=== PATIENT | male | born 1945 | race Caucasian/White ===

== ENCOUNTER 2018-08-31 12:01 | Day surgery (SDC) | payer OTHER ==
[~2018-08-31] VITALS: Ht 180.3 cm; Wt 81.7 kg
[~2018-08-31 12:01] MED LIST: ACET325 PO; Adult Low Dose81 MG PO; Ceftriaxone2 G1 IV; FISH OIL-OMEGA1 EACH PO; OXYACE5T PO; OXYC10ER PO; PARO30 PO; TRAM50 PO
--- NOTE | 2018-08-31 14:52 | NUR ---
08/31/18 1452 Ivanna Joseph PT INTO RECLINER WITH AT BEDSIDE. VSS AND PT DENIES PAIN AND NAUSEA. PT TOLERATING PO INTAKE WELL.
== END 2018-08-31 15:18 | disposition home or self-care (01) ==
LOC: ORSCSDS 12:01
PROVIDERS: Ophthalmology
PROC: 0HB1XZX Excision of Face Skin, External Approach, Diagnostic (ICD-10-PCS; principal; 2018-08-31 13:45)
DX: D04.112 Carcinoma in situ of skin of right lower eyelid, including canthus (principal); Z85.858 Personal history of malignant neoplasm of other endocrine glands; I25.2 Old myocardial infarction; Z79.82 Long term (current) use of aspirin
CPT/HCPCS: 88305; J2250; J7120

== ENCOUNTER → 2022-01-14 | Outpatient (CLI) | payer OTHER | END | disposition home or self-care (01) | LOC: LAB SHORT 08:16 | DX: L02.91 Cutaneous abscess, unspecified (principal) | CPT/HCPCS: 87070; 87075; 87205 ==

== ENCOUNTER → 2022-02-06 | Outpatient (CLI) | payer OTHER | LOC: LAB SHORT 14:02 → PLD 14:02 | DX: D48.5 Neoplasm of uncertain behavior of skin (principal) | CPT/HCPCS: 88341; 88342 ==

== ENCOUNTER → 2022-04-08 | Outpatient (CLI) | payer OTHER | END | disposition home or self-care (01) | LOC: LAB 14:15 → LAB SHORT 14:15 | DX: S01.402A Unspecified open wound of left cheek and temporomandibular area, initial encounter (principal); C44.42 Squamous cell carcinoma of skin of scalp and neck; C44.629 Squamous cell carcinoma of skin of left upper limb, including shoulder; C44.529 Squamous cell carcinoma of skin of other part of trunk; D04.39 Carcinoma in situ of skin of other parts of face; D04.4 Carcinoma in situ of skin of scalp and neck; L57.8 Other skin changes due to chronic exposure to nonionizing radiation; L85.3 Xerosis cutis; L08.9 Local infection of the skin and subcutaneous tissue, unspecified; R52 Pain, unspecified | CPT/HCPCS: 87070; 87077; 87186; 87205 ==

== ENCOUNTER 2022-04-15 12:34 | Day surgery (SDC) | payer OTHER | END 2022-04-15 22:57 | disposition home or self-care (01) | LOC: WOUND 12:34 | DX: C49.0 Malignant neoplasm of connective and soft tissue of head, face and neck (principal); F17.290 Nicotine dependence, other tobacco product, uncomplicated; Z88.1 Allergy status to other antibiotic agents; Z88.0 Allergy status to penicillin; Z88.8 Allergy status to other drugs, medicaments and biological substances | CPT/HCPCS: 99406; A9270; G0463 ==

== ENCOUNTER 2022-04-21 08:12 | Day surgery (SDC) | payer OTHER ==
[2022-04-21] MEDS ORDERED: HYDHCL25 PO (14:12)
== END 2022-04-21 23:52 | disposition home or self-care (01) ==
LOC: WOUND 08:12
DX: C49.0 Malignant neoplasm of connective and soft tissue of head, face and neck (principal); Z72.0 Tobacco use
CPT/HCPCS: A9270; G0463

== ENCOUNTER 2022-04-22 06:40 | Day surgery (SDC) | payer OTHER ==
[~2022-04-22 06:40] MED LIST changes: +HYDHCL25 PO
== END 2022-04-22 23:29 | disposition home or self-care (01) ==
LOC: WOUND
DX: C49.0 Malignant neoplasm of connective and soft tissue of head, face and neck (principal)
CPT/HCPCS: A9270; G0463

== ENCOUNTER 2022-04-24 02:01 | Day surgery (SDC) | payer OTHER | END 2022-04-24 23:10 | disposition home or self-care (01) | LOC: WOUND 02:01 | DX: C49.0 Malignant neoplasm of connective and soft tissue of head, face and neck (principal) | CPT/HCPCS: 99406; A9270; G0463 ==

== ENCOUNTER 2022-04-27 01:16 | Day surgery (SDC) | payer OTHER | END 2022-04-27 23:59 | disposition home or self-care (01) | LOC: WOUND 01:16 | DX: C49.0 Malignant neoplasm of connective and soft tissue of head, face and neck (principal); Z72.0 Tobacco use | CPT/HCPCS: A9270; G0463 ==

== ENCOUNTER 2022-04-29 07:49 | Day surgery (SDC) | payer OTHER | END 2022-04-29 23:37 | disposition home or self-care (01) | LOC: WOUND 07:49 | DX: C49.0 Malignant neoplasm of connective and soft tissue of head, face and neck (principal); Z72.0 Tobacco use | CPT/HCPCS: A9270; G0463 ==

== ENCOUNTER 2022-05-01 00:16 | Day surgery (SDC) | payer OTHER | END 2022-05-01 23:21 | disposition home or self-care (01) | LOC: WOUND 00:16 | DX: C49.0 Malignant neoplasm of connective and soft tissue of head, face and neck (principal); Z72.0 Tobacco use | CPT/HCPCS: A9270; G0463 ==

== ENCOUNTER 2022-05-15 02:20 | Day surgery (SDC) | payer OTHER | END 2022-05-16 00:30 | disposition home or self-care (01) | LOC: WOUND 02:20 | DX: C49.0 Malignant neoplasm of connective and soft tissue of head, face and neck (principal); Z72.0 Tobacco use | CPT/HCPCS: G0463 ==

== ENCOUNTER 2022-05-22 02:13 | Day surgery (SDC) | payer OTHER | END 2022-05-22 23:59 | disposition home or self-care (01) | LOC: WOUND 02:13 | DX: C49.0 Malignant neoplasm of connective and soft tissue of head, face and neck (principal); Z72.0 Tobacco use | CPT/HCPCS: G0463 ==

== ENCOUNTER 2022-05-26 02:11 | Day surgery (SDC) | payer OTHER | END 2022-05-26 22:44 | disposition home or self-care (01) | LOC: WOUND 02:11 | DX: C49.0 Malignant neoplasm of connective and soft tissue of head, face and neck (principal); Z72.0 Tobacco use | CPT/HCPCS: G0463 ==

== ENCOUNTER 2022-05-29 02:36 | Day surgery (SDC) | payer OTHER | END 2022-05-29 23:34 | disposition home or self-care (01) | LOC: WOUND 02:36 | DX: C49.0 Malignant neoplasm of connective and soft tissue of head, face and neck (principal); Z72.0 Tobacco use | CPT/HCPCS: 99406; G0463 ==

== ENCOUNTER 2022-06-02 02:47 | Day surgery (SDC) | payer OTHER | END 2022-06-02 23:08 | disposition home or self-care (01) | LOC: WOUND 02:47 | DX: C49.0 Malignant neoplasm of connective and soft tissue of head, face and neck (principal); Z72.0 Tobacco use | CPT/HCPCS: G0463 ==

== ENCOUNTER 2022-06-05 00:34 | Day surgery (SDC) | payer OTHER | END 2022-06-05 23:25 | disposition home or self-care (01) | LOC: WOUND 00:34 | DX: C49.0 Malignant neoplasm of connective and soft tissue of head, face and neck (principal); Z72.0 Tobacco use | CPT/HCPCS: G0463 ==

== ENCOUNTER 2022-06-09 01:36 | Day surgery (SDC) | payer OTHER | END 2022-06-09 23:14 | disposition home or self-care (01) | LOC: WOUND 01:36 | DX: C49.0 Malignant neoplasm of connective and soft tissue of head, face and neck (principal); Z72.0 Tobacco use | CPT/HCPCS: 99406; G0463 ==

== ENCOUNTER 2022-06-12 00:47 | Day surgery (SDC) | payer OTHER | END 2022-06-12 23:17 | disposition home or self-care (01) | LOC: WOUND 00:47 | DX: C49.0 Malignant neoplasm of connective and soft tissue of head, face and neck (principal); Z72.0 Tobacco use | CPT/HCPCS: G0463 ==

== ENCOUNTER 2022-06-16 02:56 | Day surgery (SDC) | payer OTHER | END 2022-06-16 23:23 | disposition home or self-care (01) | LOC: WOUND 02:56 | DX: C49.0 Malignant neoplasm of connective and soft tissue of head, face and neck (principal); Z72.0 Tobacco use | CPT/HCPCS: G0463 ==

== ENCOUNTER 2022-06-19 01:30 | Day surgery (SDC) | payer OTHER | END 2022-06-19 23:16 | disposition home or self-care (01) | LOC: WOUND 01:30 | DX: C49.0 Malignant neoplasm of connective and soft tissue of head, face and neck (principal); Z72.0 Tobacco use | CPT/HCPCS: G0463 ==

== ENCOUNTER 2022-06-23 03:55 | Day surgery (SDC) | payer OTHER ==
[2022-06-23] MEDS ORDERED: OXYC5 PO (22:20)
[2022-06-23] MEDS ORDERED: Prednisone10 MG PO (22:20)
[2022-06-23] MEDS ORDERED: PAXIL40 M1 PO (22:21)
== END 2022-06-23 23:18 | disposition home or self-care (01) ==
LOC: WOUND 03:55
DX: C49.0 Malignant neoplasm of connective and soft tissue of head, face and neck (principal); Z72.0 Tobacco use
CPT/HCPCS: G0463

== ENCOUNTER 2022-06-26 00:56 | Day surgery (SDC) | payer OTHER ==
[~2022-06-26 00:56] MED LIST changes: +OXYC5 PO; +PAXIL40 M1 PO; +Prednisone10 MG PO
== END 2022-06-26 23:13 | disposition home or self-care (01) ==
LOC: WOUND 00:56
DX: S01.402A Unspecified open wound of left cheek and temporomandibular area, initial encounter (principal); C49.0 Malignant neoplasm of connective and soft tissue of head, face and neck
CPT/HCPCS: G0463